=== PATIENT | male | born 1945 | race Caucasian/White ===

== ENCOUNTER 2019-02-02 08:12 | Day surgery (SDC) | payer OTHER ==
--- NOTE | 2019-02-01 15:11 | RAD REPORT ---
EXAM DESCRIPTION: Lisandro Bull (2 Views)02/01/2019 3:02 pm CLINICAL HISTORY: Hypertension preop for vascular angiography COMPARISON: None FINDINGS: The lungs appear clear of acute infiltrate. The heart is mildly enlarged IMPRESSION: No acute abnormalities displayed
[2019-02-01 16:15] LABS: Absolute Lymphocytes (CBC) 1.6 K/uL (0.7-4.9); Basophils % 0.5 % (0-1.3); Hematocrit 45.8 % (39.6-49.0); Lymphocytes % 24.4 % (15.3-44.8); MPV 9.9 fL (7.6-11.3); RBC Red Blood Cell Count 4.87 M/uL (4.33-5.43)
[2019-02-01 16:31] LABS: Protime INR 1.18
[2019-02-01 16:38] LABS: Potassium 3.7 mmol/L (3.5-5.1)
[2019-02-02] MEDS ORDERED: NA CHLORIDE 0.9% 500 ML ONE (08:37)
[2019-02-02] MEDS ORDERED: LIDOCAINE 1% MPF 30 ML VIAL ONE (09:11)
[2019-02-02] MEDS ORDERED: HEPA 1000U/500MLS 1,000 UNIT/500 ML BAG IV ONE (09:11)
[2019-02-02] MEDS ORDERED: FENTANYL CITR 100 MCG/2 ML ONE (09:26)
[2019-02-02] MEDS ORDERED: MIDAZOLAM HCL 2 MG/2 ML INJ ONE ×2 (09:26→09:39)
--- NOTE | 2019-02-02 20:08 | OP ---
Surgeon: Robert Ferro MD Assembler Molded Frames: Hyacinth Lynch. Reason For Admission: Outpatient bilateral selective carotid angiogram. Indication: Cerebrovascular disease. Procedure In Detail: Mr. Garner is 73, has had a history of AFib, CAD in the past, hypertension, d yslipidemia, was found on a routine carotid Doppler examination because of a bruit to have bilateral carotid stenosis, admitted as an outpatient through the director of labor relations, was given Versed for IV sedation. A 6-Mauritanian sheath introduced in the right common femoral artery. Patient has been on Coumadin and th is has been held for about 5 days. Angio-Seal was used to close the case. A JR4 catheter Diana tn s used for selective angiography of the right carotid artery and the left carotid artery. He was fou nd to have an 80% right carotid artery stenosis. He was found to have a 50% to 60% left internal car otid artery stenosis right at the ostium. There were no complications. Blood loss was 5 cc. Final Diagnosis: Cerebrovascular disease, severe. Plan: At least for now is a right carotid endarterectomy. Anesthesia: Total conscious sedation was 30 minutes. HIRO/AHMET Voice ID: [id number] Report ID: [id number]
== END 2019-02-02 12:11 | disposition home or self-care (01) ==
LOC: CCL 08:12
DX: I65.23 Occlusion and stenosis of bilateral carotid arteries (principal); I10 Essential (primary) hypertension; I48.91 Unspecified atrial fibrillation; E78.5 Hyperlipidemia, unspecified; E78.6 Lipoprotein deficiency; G47.30 Sleep apnea, unspecified; Z88.0 Allergy status to penicillin; Z88.8 Allergy status to other drugs, medicaments and biological substances; Z79.01 Long term (current) use of anticoagulants; Z82.49 Family history of ischemic heart disease and other diseases of the circulatory system
CPT/HCPCS: 85025; 80048; 36415; 85610; 85730; 71046; 36222; C1893; C1760; J2250; J3010

== ENCOUNTER 2020-02-24 06:38 | Day surgery (SDC) | payer OTHER ==
--- NOTE | 2020-02-22 14:20 | RAD REPORT ---
EXAM DESCRIPTION: Lisandro Figueroa And Camron (2 Views)02/22/2020 2:12 pm CLINICAL HISTORY: Preop for coronary catheterization COMPARISON: 2019 FINDINGS: The lungs appear clear of acute infiltrate. The heart is mildly enlarged IMPRESSION: No acute abnormalities displayed
[2020-02-22 14:46] LABS: Absolute Lymphocytes (CBC) 1.4 K/uL (0.7-4.9); Basophils % 0.7 % (0-1.3); Hematocrit 45.3 % (39.6-49.0); Lymphocytes % 18.9 % (15.3-44.8); MPV 9.8 fL (7.6-11.3); RBC Red Blood Cell Count 4.87 M/uL (4.33-5.43)
[2020-02-22 14:48] LABS: Protime INR 2.02
[2020-02-22 14:53] LABS: Potassium 4.8 mmol/L (3.5-5.1)
--- OUTSIDE RECORDS SUMMARY | 2020-02-24 06:40 | XMS REPORT | Clinical Summary ---
:1945 Author Organization [facility] Address [address] [place] [address] Care Team Providers Name Role Phone Rashad Ledesma Primary Care Provider Unavailable Aaron Bermudez Unavailable Allergies Active Allergy Reactions Severity Noted Date Comments Penicillins 02/01/2019 Other reaction( s): Itching/Hives/R imani Rpugbst-Otw-Rnh Reductase 02/08/2019 "P ass out". Tried all Inhibitors statins Medications Medication Sig Dispensed Refills Start Date End Date Status amLODIPine (NORVASC) Take 10 mg by 3 12/17/2018 Active 10 MG tablet mouth daily. valsartan-hydrochlorot Take 1 tablet by 3 12/18/2018 Active hiazide (DIOVAN-HCT) mouth daily. 320-12.5 mg per tablet warfarin (COUMADIN) 6 Take 7 mg by mouth 0 9 Active MG tabletIndications: daily Total of 7 takes a 1mg and 6 mg mg daily. pills making a total of 7mg daily. omega-3 fatty Take 2 g by mouth 0 Active acids-fish oil daily. 340-1,000 mg Cap per capsule CHOLESTEROL ORAL Take 6 capsules by 0 Active mouth daily "Cholesterol off complete" . Missing or Take 25 mg by 0 Activ e Non-Formulary mouth daily Medication allergy relief . multivit-mins/iron/fol Take 1 tablet by 0 Active ic/lycop (CENTRUM MEN mouth daily. ORAL) Active Problems Problem Noted Date Carotid artery stenosis 02/24/2019 Carotid stenosis 02/24/2019 S/P right carotid endarterectomy (Mariela 02/24) 2018 Hypertensive urgency 02/24/2019 Respiratory insufficiency 02/24/2019 Carotid artery occlusion Hypertension Hyperlipidemia Atrial fibrillation Encounters Date Type Specialty Care Team Description 03/11/2019 Office Visit Cardiology William Sierra Postoperati ve state MD Yonathan (Primary Dx) 02/25/2019 Travel 02/24/2019 Surgery William Sierra ENDARTERECT SIERRACAITY MD 02/24/2019 Anesthesia Event KristyMau rose, AA 02/24/2019 - Hospital Encounter Cardiology William Sierra S/P r ight carotid 02/25/2019 MD Yonathan endarterectomy (Mariela Teran, Capri 02/24) (Primar y Dx) MD Richar after 02/23/2019 Family History Medical History Relation Name Comments Cerebral aneurysm Mother Relation Name Status Comments Father Mother Social History Tobacco Use Types Packs/Day Years Used Date Never Smoker Smokeless Tobacco: Never Used Alcohol Use Drinks/Week oz/Week Comments No Alcohol Habits Answer Date Recorded How often do you have a drink containing alcohol? Never 02/08/2019 How many drinks containing alcohol do you have on a typical Not asked day when you are drinking? How often do you have six or more drinks on one occasion? No t asked Sex Assigned at Date Recorded Not on file Job Start Date Occupation Industry Not on file Not on file Not on file Travel History Travel Start Travel End No recent travel history available. Last Filed Vital Signs Vital Sign Reading Time Taken Blood Pressure 142/84 03/11/2019 9:52 AM CDT Pulse 92 03/11/2019 9:52 AM CDT Temperature 36.8 C (98.3 F) 03/11/2019 9:52 AM CDT Respiratory Rate 18 03/11/2019 9:52 AM CDT Oxygen Saturation 98% 03/11/2019 9:52 AM CDT Inhaled Oxygen Concentration - - Weight 99.8 kg (220 lb) 03/11/2019 9:52 AM CDT Height 177.8 cm (5' 10") 03/11/2019 9:52 AM CDT Body Mass Index 31.57 03/11/2019 9:52 AM CDT Plan of Treatment Health Maintenance Due Date Last Done Comments COLON CANCER SCREENING COLONOSCOPY 1945 PNEUMOCOCCAL 65+ LOW/MEDIUM RISK (1 of 2 - PCV13) 2011 MEDICARE ANNUAL WELLNESS (YEAR 2 or FIRST YEAR if no 06/07/2012 IPPE) INFLUENZA VACCINE (#1) 2020 Implants Implanted Type Area Scheduling Coordinator Device Shelf Model / Identifier Expiration Serial / Lot Date Grft Hemshld Dbl Aleksandr 0.3x3.0in [id number] - [id number] NTS Right: GETINGE 03/06/2023 [id number] / Implanted: Qty: 1 on 02/24/2019 by William Sierra MD Carotid IND:MAQUET:CV [id number] / Artery [id number] Procedures Procedure Name Priority Date/Time Associated Comments Diagnosis RHYTHM STRIP - SCAN 02/26/2019 1:00 PM CDT RHYTHM STRIP - SCAN 02/26/2019 10:21 AM CDT TRANSFUSION SERVICE 02/25/2019 6:00 REPORT - SCAN PM CDT PROTHROMBIN TIME/INR STAT 02/24/2019 9:44 Res ults for this AM CDT procedure are i n the results section. PHOSPHORUS STAT 02/24/2019 9:44 Results for this AM CDT procedure are i n the results section. MAGNESIUM STAT 02/24/2019 9:44 Results for this AM CDT procedure are i n the results section. LACTIC ACID, STAT 02/24/2019 9:44 Results for this ARTERIAL AM CDT procedure are i n the results section. HEPATIC FUNCTION STAT 02/24/2019 9:44 Results for this PANEL AM CDT procedure are i n the results section. CBC (HEMOGRAM ONLY) STAT 02/24/2019 9:44 Resu lts for this AM CDT procedure are i n the results section. CALCIUM, IONIZED STAT 02/24/2019 9:44 Results for this AM CDT procedure are i n the results section. BASIC METABOLIC STAT 02/24/2019 9:44 Results for this PANEL (7) AM CDT procedure are i n the results section. TISSUE EXAM AP Routine 02/24/2019 8:24 Results for this AM CDT procedure are i n the results section. ENDARTERECTOMY,CAROT 02/24/2019 7:30 Carotid stenosis , ID AM CDT asymptomatic, right Special Needs (ICU BED) ABORH, MANUAL STAT 02/24/2019 7:00 AM CDT Res ults for this procedure are in the results section. PROTHROMBIN TIME/INR Routine 02/24/2019 7:00 AM CDT POCT-GLUCOSE METER Routine 02/24/2019 5:50 AM CDT after 02/23/2019 Results RHYTHM STRIP - SCAN (02/26/2019 1:00 PM CDT)Only the most recent of2 results within the time period is included. Narrative Performed At This result has an attachment that is no t available. TRANSFUSION SERVICE REPORT - SCAN (02/25/2019 6:00 PM CDT) Narrative Performed At This result has an attachment that is no t available. Calcium, Ionized (02/24/2019 9:44 AM CDT) Calcium, Ion 1.15 1.12 - 1.27 mmol/L [facility] pH, Blood 7.37 [facility] Specimen Blood Performing Organization Address City/[facility]/Zipcode Phone Number [address] [address] [place] Lactic Acid, Arterial (02/24/2019 9:44 AM CDT) Lactate, Art 0.8 0.5 - 2.2 mmol/L [facility] Specimen Blood, Arterial Performing Organization Address [facility] Phone Number [address] [address] C[place] Prothromin time/INR (02/24/2019 9:44 AM CDT)Only the most recent of2 results within the time period is included. Protime 16.2 (H) 11.9 - 14.2 seconds [facility] INR 1.4 <=5.9 [facility] Specimen Blood Narrative Performed At Effective 12/02/2018: PT Reference Range [facility] Change New: 11.9-14.2Previous: 11.7-14.7 RECOMMENDED COUMADIN/WARFARIN INR THERAPY RANGES STANDARD DOSE: 2.0-3.0Includes: PROPHYLAXIS for venous thrombosis, systemic embolization; TREATMENT for venous thrombosis and/or pulmonary embolus. HIGH RISK: Target INR is 2.5-3.5 for patients wiht mechanical heart valves. Performing Organization Address City/[facility]/Zipcode Phone Number [address] [address] [place] CBC (Hemogram only) (02/24/2019 9:44 AM CDT) WBC 11.4 (H) 3.5 - 10.5 K/L [facility] RBC 4.58 (L) 4.63 - 6.08 M/L [facility] Hemoglobin 14.6 13.7 - 17.5 GM/DL [facility] Hematocrit 42.8 40.1 - 51.0 % [facility] MCV 93.4 (H) 79.0 - 92.2 fL [facility] MCH 31.9 25.7 - 32.2 pg [facility] MCHC 34.1 32.3 - 36.5 GM/DL [facility] RDW 13.1 11.6 - 14.4 % [facility] Platelets 245 150 - 450 K/CU MM [facility] MPV 10.4 9.4 - 12.4 fL [facility] nRBC 0 0 - 0 /100 WBC [facility] Specimen Blood Performing Organization Address City/[facility]/Zipcode Phone Number [address] [address] [place] Phosphorus (02/24/2019 9:44 AM CDT) Phosphorus 2.9 2.3 - 4.7 mg/dL [facility] Specimen Blood Performing Organization Address City/State/Zipcode Phone Number [address] [address] C[place] Magnesium (02/24/2019 9:44 AM CDT) Magnesium 1.9 1.6 - 2.6 mg/dL [facility] Specimen Blood Performing Organization Address City/[facility]/Zipcode Phone Number [facility] [address] [place] [address] [place] Hepatic function panel (02/24/2019 9:44 AM CDT) Protein, Total 7.0 6.0 - 8.3 gm/dL [facility] ALTH [facility] Albumin 3.7 3.5 - 5.0 g/dL [facility] Total Bilirubin 1.0 0.2 - 1.2 mg/dL [facility] Bilirubin, Direct 0.4 0.1 - 0.5 mg/dL [facility] Alkaline Phosphatase 64 40 - 150 U/L [facility] AST 22 5 - 34 U/L [facility] HE ALTH [facility] ALT 16 6 - 55 U/L [facility] Specimen Blood Performing Organization Address City/State/Zipcode Phone Number [facility] [address] [place] [address] [place] Basic Metabolic Panel (02/24/2019 9:44 AM CDT) Sodium 136 136 - 145 meq/L [facility] Potassium 4.1 3.5 - 5.1 meq/L [facility] Chloride 107 98 - 107 meq/L [facility] CO2 22 22 - 29 meq/L [facility] AL[facility] BUN 18 7 - 21 mg/dL [facility] AL[facility] Creatinine 1.00 0.57 - 1.25 mg/dL [facility] Glucose 131 (H) 70 - 105 mg/dL [facility] Calcium 8.3 (L) 8.4 - 10.2 mg/dL [facility] H EALTH [facility] EGFR 73Comment: ESTIMATED GFR IS mL/min/1.73 sq m [facility] NOT ACCURATE CREATININE [facility] CLEARANCE IN PREDICTING GLOMERULAR FILTRATION RATE. ESTIMATED GFR IS NOT APPLICABLE FOR DIALYSIS PATIENTS. Specimen Blood Performing Organization Address City/[facility]/Zipcode Phone Number [address] [address] [place] Tissue Exam (02/24/2019 8:24 AM CDT) Case Report Surgical Pathology Report Case: [id number] [facility] Authorizing Provider:William Dennis, Collected: 02/24/2019 0824 [facility] Received:02/24/2019 1015 [employer]IOPERATIVE SERVICES Pathologist: Abimael Perez MD Specimen:Carotid, Ri ght, RIGHT CAROTID ARTERY PLAQUE DIAGNOSIS ARTERY, RIGHT CAROTID, ENDARTERECTOMY: [facility] CALCIFIC ATHEROSCLEROTIC PLAQUE [facility] Signing Pathologist Direct Phone Line: [phone] CPT Code(s) 78915; [address] [facility] ER SPECIMEN SOURCE Carotid artery plaque, right, [facility] description, right carotid [facility] artery plaque GROSS DESCRIPTION The specimen is received in one part labeled with the patient's name and MRN number corresponding to requisition slip with the same information. [facility] Received in formalin labeled "carotid right" is one piece of blood vessel with a pinpoint lumen measuring 2.7 x 0.8 x 0.5 cm. The lumen is smooth except for proximal dark red irregular surface. Represen tative sections are submitted in cassette A1. M A/pl MICROSCOPIC DESCRIPTION Performed [facility] Specimen Tissue Performing Organization Address City/[facility]/Zipcode Phone Number [address] [address] [place] ABORH, manual (02/24/2019 7:00 AM CDT) ABO Grouping O [facility] Rh Factor POS [facility] Specimen Blood Performing Organization Address City/[facility]/Zipcode Phone Number [address] [place] [phone] POC-Glucose meter (02/24/2019 5:50 AM CDT) POC-Glucose Meter 96Comment: TESTED AT 70 - 110 mg/dL [facility] [address] [facility] [id number] Specimen Blood Performing Organization Address City/State/Zipcode Phone Number [address] [address] CENTER after 02/23/2019 Insurance Payer Benefit Plan / Group Subscriber ID Type Phone A ddress MEDICARE MEDICARE A B xxxxxxxxxxx Medicare AETNA - MGD CARE AETNA INDEMNITY NON CONTR xxxxxxxxx Comm Advance Directives For more information, please contact:[address] [phone] Code Status Date Activated Date Inactivated Comments Full Code 02/24/2019 5:41 AM 02/25/2019 1:05 PM This code status was determined by: Patient
--- OUTSIDE RECORDS SUMMARY | 2020-02-24 06:41 | XMS REPORT | Continuity of Care Document ---
:1945 Author Organization [facility] t Address [address] [place] [address] Care Team Providers Name Role Phone Rashad Ledesma Primary Care Physician Unavailable Heather Sierra MD Attending Clinician HEATHER SIERRA Attending Clinician Unavailable Richar Teran MD Attending Clinician Cesia Sewell Attending Clinician Unavailable HEATHER SIERRA Admitting Clinician Unavailable Payers Payer Name Policy Policy Number Effective Expiration Source Type Date Date MEDICAREMEDICARE A xxxxxxxxxxx [facility] B[facility]xxx[facility] AETNA - MGD CAREAETNA xxxxxxxxx [facility]MNITY NON [facility] CONTR[facility]xComm [facility] Problems Condition Condition Condition Status Onset Resolution Last Treating Co mments Source Name Details Category Date Date Treatment Clinician Date Carotid Carotid Disease Active [facility] stenosis stenosis 02-24 [facility] - 00:[facility]: Medical 00 Center S/P right S/P right Disease Active [facility] carotid carotid 02-24 [facility] - endarterec endarterec 00:00: Me dical jurgen jurgen [address] [place] (Mariela López 02/24) 02/24) Hypertensi Hypertensi Disease Active [facility] ve urgency ve urgency 02-24 Shayy kes - 00:00: Medical 00 [place] Respirator Respirator Disease Active [facility] y y 02-24 [facility] - insufficie insufficie 00:00: Me dical ncy ncy 00 Center Carotid Carotid Disease Active [facility] artery artery [facility] - occlusion occlusion [facility] Hypertensi Hypertensi Disease Active [facility] on on [facility] Hyperlipid Hyperlipid Disease Active [facility] emia emia [facility] Atrial Atrial Disease Active [facility] St fibrillati fibrillati [facility] - on on [facility] Center Allergies, Adverse Reactions, Alerts Allergy Allergy Status Severity Reaction(s) Onset Inactive Treating Comm ents Source Name Type Date Date Clinician Statins- Propensi Active "Pass [facility] Hmg-Coa ty to 02-08 out". [facility] - [place] adverse 00:00: Tried all [facility] e reaction 00 statins [place] Inhibito s rs Penicill Propensi Active Other [facility] ins ty to 02-01 reaction( [facility] - adverse 00:00: s): Medical reaction 00 Itching/H Cente r s char/Rash Family History Family Member Diagnosis Comments Start Date Stop Date Source Natural mother Cerebral aneurysm [facility] Social History Social Habit Start Date Stop Date Quantity Comments Source History SDOH Alcohol [facility] Std Drinks [facility] History SDOH Alcohol [facility] Binge [facility] Sex Assigned At [facility] History SDOH Alcohol 2019-02-08 2019-02-08 1 [facility] - Frequency 00:00:00 00:00:00 [facility] Center Smoking Status Start Date Stop Date Source Never smoker [facility] edical [place] Medications Ordered Filled Start Stop Current Ordering Indication Dosage Frequency Signature Comments Components Source Medication Medication Date Date Medication? Clinician (SIG) Name Name multivit-mi Yes 1{tbl} QD Take [address] ns/iron/fol 8-05 tablet by Dulce es - ic/lycop 10:31: mouth Medical (CENTRUM 46 daily. Center MEN ORAL) omega-3 2018- Yes 2g QD Take [address] fatty 8-05 by mouth [facility] - acids-fish 10:31: daily. Medic al oil 19 Center 340-1,000 mg Cap per capsule CHOLESTEROL 2019- Yes 6{capsu QD Take [address] ORAL 8-05 le} capsules [facility] - 10:31: by mouth Medical 19 daily Center "Cholester ol off complete" . Missing or Yes 25mg QD Take [address] Non-Formula 8-05 by mouth Luke s - ry 10:31: daily Medical Medication 19 allergy Center relief . warfarin Yes 7mg QD Take [address] (COUMADIN) 7-08 by mouth [facility] - 6 MG tablet 00:00: daily Medic al 00 Total of 7 Center mg daily. valsartan-h Yes 1{tbl} QD Take [address] ydrochlorot 6-14 tablet by Dulce es - hiazide 00:00: mouth Medical (DIOVAN-HCT 00 daily. Center ) 320-12.5 mg per tablet amLODIPine Yes 10mg QD Take [address] (NORVASC) 6-13 by mouth [facility] - 10 MG 00:00: daily. Medical tablet 00 [place] Vital Signs Vital Name Observation Time Observation Value Comments Source Systolic blood 2019-03-11 09:52:00 142 mm[Hg] [facility] Diastolic blood 2019-03-11 09:52:00 84 mm[Hg] [facility] S [facility] Heart rate 2019-03-11 09:52:00 92 /min [facility] Body temperature 2019-03-11 09:52:00 36.83 Sisi [facility] Respiratory rate 2019-03-11 09:52:00 18 /min [facility] Body height 2019-03-11 09:52:00 177.8 cm [facility] Body weight Measured 2019-03-11 09:52:00 99.791 kg [facility] BMI 2019-03-11 09:52:00 31.57 kg/m2 [facility] Oxygen saturation in 2019-03-11 09:52:00 98 /min [facility] Arterial blood by Medical Ce nter Pulse oximetry Procedures Procedure Date / Time Performed Performing Clinician Romeo gee RHYTHM STRIP - SCAN 2019-02-26 13:00:08 Provider, Default [facility] RHYTHM STRIP - SCAN 2019-02-26 10:21:43 Provider, Default [facility] TRANSFUSION SERVICE 2019-02-25 18:00:16 Provider, Default [facility] - REPORT - SCAN [facility] BASIC METABOLIC PANEL 2019-02-24 09:44:[address] [facility] () [facility] CALCIUM, IONIZED 2019-02-24 09:44:00 [facility]ala amy [facility] CBC (HEMOGRAM ONLY) 2019-02-24 09:44:00 Zavala [facility] HEPATIC FUNCTION PANEL 2019-02-24 09:44:00 Zavala [facility] LACTIC ACID, ARTERIAL 2019-02-24 09:44:00 ZavalaRo [facility] MAGNESIUM 2019-02-24 09:44:00 Zavala amy [facility] PHOSPHORUS 2019-02-24 09:44:00 Zavala [facility] PROTHROMBIN TIME/INR 2019-02-24 09:44:00 Tay Umanzor [facility] TISSUE EXAM 2019-02-24 08:24:00 William Sierra [facility] ENDARTERECTOMY,CAROTID 2019-02-24 07:30:[address] [facility] PROTHROMBIN TIME/INR 2019-02-24 07:00:00 Channing Alatorre [facility] ABORH, MANUAL 2019-02-24 07:00:00 Denisha Abreu [facility] POCT-GLUCOSE METER 2019-02-24 05:50:[address] [facility] Plan of Care Planned Activity Planned Date Details Comments Source Future Scheduled 2020-03-07 INFLUENZA VACCINE (#1) [facility] - Test 00:00:00 [code = INFLUENZA Medical Ce nter VACCINE (#1)] Future Scheduled 2012-06-07 MEDICARE ANNUAL [facility] - Test 00:00:00 WELLNESS (YEAR 2 or Medical Center FIRST YEAR if no IPPE) [code = MEDICARE ANNUAL WELLNESS (YEAR 2 or FIRST YEAR if no IPPE)] Future Scheduled 2011 PNEUMOCOCCAL [address] - Test 00:00:00 LOW/MEDIUM RISK (1 of Medica [facility] 2 - PCV13) [code = PNEUMOCOCCAL 65+ LOW/MEDIUM RISK (1 of 2 - PCV13)] Future Scheduled [address] [facility]ce [facility] - Test 00:00:00 malignant neoplasm of Medica l Center colon (procedure) [code = 312936062] Results Test Description Test Time Test Comments Results Result Comments Source Tissue Exam 2019-03-03 17:48:00 Test Item Value Reference Range Interpretation Comme nts Case Report (test code = 104) Surgical Pathology Report Case: [id number] Authorizing Provider: William Sierra, Collected: 02/24/2019 0824 Ordering Location: [facility] Received: 02/24/2019 1015 PERIOPERATIVE SERVICES Pathologist: Abimael Perez MD Specimen: Carotid, Right, RIGHT CAROTID ARTERY PLAQUE DIAGNOSIS (test code = 3220) i9blwYJrEIQjo3uaMMZxlNBeVlQeQdZaPjAuXd pc pCCdMAzkqgFfNEyrf7LbH8TuNhApCJotwaEuHNIj ZcrazxbkEUCfPKN1ibDkVWMyPPsbJBZuGMvtKv5q rWNtuXrwVwBtEZRpz8ftrkWJrsyuuXh7b1yzENOz HaO4aRFtGPaaP4oqgtEtuJTuEPFiGXg0vZ37NDVc eR4luODkAMjvjyOgMVivyaZuocVtLls6SPTsK6hj FFCfGSGhB8IiEM0nWNMaJwd8EJB5WED5rGpgg4A0 fTWzgXRkcVbhPfZuPqUmOTUAu0QvXGi3sDgzR1Hx KSJhUvV0kUEoCTNaZJfgGPNhFKWmqhH9bC54INzr inO4aDXgs4Mwm87bb253hN8lnICeKHA5FTMmIANq xGCdBNDgJJJ4QQIssAHiK9v9VdBcrRPjC5B9OkXf fBNlY0G0FgBqgPKiW7Z6TdYztWWnCZLtqJPgKf9f nRDtdSAjiv3vxl45IRT0f2BxqXqqEXN9DSV6GjWg Yn5thYZaJBYaBI2jUtMxpAGkEFFqcb80bVsdROku ldOgmP8qJnTdSJRvxAJhBFHgPK2gzZYpXMVrqG8g sntkSVZqKvFpwwrbDRZacHlzxyOkWz0zsHdjPUJ0 MJetD4yggZ0jIiH7VCgzZ4kniO7oEQa0YEudkJJ6 KUTvyR7dWF9cfzsxs4ohPdAkRC6dszmgn0txNoHx OT2jcwp6c8hhUyTgRD1wyuvbs5thGrDeBBwwZSIl rqfnEBVgn4GmnmqlGDLkj0ZsY4OraLqzL52fxBao J39hDSZtkYmivE5ddWzbiA5rHzQfEvGdRJgsnZhg bGFpblxmMFxmczIwXHBsYWluXGYxXGZzMjAgQVJU RVJZLCBSSUdIVCBDQVJPVElELCBFTkRBUlRFUkVD HH4RAJxcdPLaPVVCJXMMTthRLXOFKVNXA2AFNCWP L6LPCwZHJPNTHRGyaTHgrTxqrtQeYDfpo4QvREfu QYYyPX0vhLaiIHFuEB1wXMFjO4gyoX6aaty8EgIa GZDlQcN0PYYvjtN0Yzi8HKYpPTvdp4stt1GwVKEe VLy7qGxsHaXhFUNff8nlwyFhPkFeNSAnIMFzUTDh hOBpV181z0wvx4vhbrCjbEC9EHCaHMJ2GPbvnqJy stQ3UVuktZJwOnN9YKoihuHoHBulroLjrqFkBpa9 PGAzM930ICH8tZtsn2kfDJW4PSRmQNKiZuRlAd4k kPEhT183YHKfSECGVBZpeDc8FDXdunJbxjYjkJHP m233Z079o2gmKWZjlyYpxWiCiktii1tqY245VYEz zUSshgKzFpYhORJruHXzxSP6BKKaXV8bcodaIGmq AJjwSOKvxiE7GXNzqVAeI0RvMOUlKA3xtdkpUUF7 CJbbCZFjLYQ1FaQyLXNco6Dfonw2SrOnop3ujb60 UOG0s1ZvlCetUTL5OPA0VuTuSo1dfSZqEKFkHI3v CuKkoJXaQCGzaz95hQlbNJglBEM4RSAlgnWht9Yo i4myOoKobuYeH4qpV1FcQCDjSBGoQPGbByKuvoIr y8Rct3PehTZebUw5g5qoWPNxXMPrpDdba5bqGXV7 WSCkeENcH7xbeN8hAGKzSH6dfkzdr1vrMDvsJUzi KGEoiOY3ozE5EADfvFTeN6PtsO5gTREoWGnqFEKj ytc7PwTbYg4kwXLzkBmoTQgrOiseJCtoCNJhtwMf bnRccGduZGVjXHBsYWluXHBsYWluXGYwXGZzMjRc cWxcbGFuZzEwMzNcaGljaFxmMVxkYmNoXGYxXGxv L1crGuGsFyLjLdd4VZPzdNFiDZCjBpf3TEYojKEw LQMLnZydyG0pGRRhfDwhzK1krCW3BFJqjiWqxRYP gH0zSHHIgJ7fWpU3VoCdFqM2BYKjEWicyZSriW6= CPT Code(s) (test code = 3357) s4wuoRQtVDFzzZEaHsEeRSFkZJVol7abGCCt bGFu IaGyUsNaHoZaQxwmtNTrMQGtNnOer9yxy512iMNz o7bbDEDfJbY1oJFzTCTleJOoM869t1cjx3vxviIp dCP9YJIcEQV4RBdlwmVkigY3BPlqhBNhJpW9PRfa ogAtQSrmhvZcitPxAhl6XZVpW977WOV5mGtzi8tf YQE5TIHhKBTjLoWvXi0xtOKnF734GGKoVFROCNNm wZw9YRDsmzZpwgRdtTBEp514U810f4nhORQsebLw iOxBspyht4yzL242KODgqVVbeyCjHqCxKYBsmZLt uPT7JCRaYU7mprzePpPwOT9yanecWaJhRC1chjc8 CsVxLB3vnhbzAeByCMakUHLwpqhtXLBwf2Oqzcts HN2jC3Jfr6C5yE7cuAArFTXtaXJkXmZkOQMnhh3y wZSmTMumb4YkOJW9vsU8wRKyxPAlVHOzTE94Zhrb d5DcRtppPXX9NPAtqzIxt9Bfv8siHhSotzNcV4ah C7QwAFLqMVZwQMWxCaOiasQhp2Ioq1HszOVxnVj8 s7ufLKDhNMQnjPnjx7udTOS7CEXtH9Z7iJAxx2eu KBjzPPEuiFE3rhxwNRmgNCExmqN5ovamUMuxCUCv eSV9ukqfKIjpIIXiYeP9luhgKOczWDSkRQA5SHmf j173DAP1EGhyHkgzZMsuYNXgbmLyitKtxLaqZMFl MEOeHLgzWAXdDQitYNTjWXGpMlFnpGoadCglzR1g RlNhLaUmFPbcCQ1qYCBfX6uigGXnQLBwJWOzH1xc YjSilJ2gbFupGPmdkrVyPSo8FmD2CuD8TRQiZGzd YXJ9 SPECIMEN SOURCE (test code = 3377) c7rmjNKbHFShlWNlPyOaVDMoQWKhj4ig ZGVmbGFu ErQzWgPvAfApYmfcwETvZKJgGuXyg1xzn545mNEw s8dqAKPwUnM7zLNsYUXrqSAgO099p1jsi5hsqiRe tSM4ACOlDWL1WDttkaAtfrN2YEcjwPMhMzS9DKgd dgMxICdbkpRpuqLzMen7YZTkQ264ESI7xJceu3wa HZO7PSSzBQEyAuYwCz6rzDHsQ569JELyXSSXYCFp eRm5KCYskpEyzlWvxKQYx376Q857s8ujLMIpgdUx kHiIwbjmp6raU094AZGzfIEjezIzNmUoZNIymZZv bGY3ZCFfHV5xnvpuXgOvHK0jffzkTqSpYB5kkcw0 EcDrLC4ydileTmZhWTxyLNNfsftvWWMdp0Zilexj QT2tS3Mel2J8uP7isMDdKBFkvISqGuDbQFJmii9v kLAyDParb9YlNUZ8bvJ8aDIlaQKzZIJkBB36Kkds b5ZqVtznOTC6JPNmucOnk8Aou6tfIfRtrjHmC0pt L6XhUEWlORJkCZZvXlBnnbDhe6Kiz1EfaXGnqPj8 a7zhROSlCXInbWvgc1hgOES3ADXpT9I3lSVuk8ew LVvgJRUlmSC1fayyCDvtBSMtppP6btflILivGFFo aWS1mnfeNXqbDIUgKhZ8fmkjQUqvOIKcPXN2KKlq l998AWW0SHjiFkcfPMqhZHCyqnJtedBujIcuOSOe NCFwKLzcQCDyNSijSMVgCLVyWcDflJeaxPdkuV4w IqFuAgPeEJqcQB9tFVLeI4lloHYsXWMuTMLtI1iq OxVikP6tsIfuCAwbokDjJINnqd97dNMjNIZ2TBX8 FDLmTSN0JWrqggiisAZiYOPls5CrtDW6lC1oDVAw aWdodCBjYXJvdGlkIGFydGVyeSBwbGFxdWVccGFy fQ== GROSS DESCRIPTION (test code = 3366) z2hdwCAxTACdwNIeNnIuKCQwEYWhc3 lcZGVmbGFu UqCoDrXkCeZmMktssUDfWKIaCxQsj7nkq344tFUu r5ciRBTnZqZ8hHPyPVHokWRkI891HYDxZLdmh4qx r5ZiRSDzzNWwa6J2IEPJtbjxqOy7zAhwI57ku4U0 TmplP4tqEMGqGVHjH0IxQU1yQEZjDza4NJZ4KHJ0 TCUlDZOjL0BoOW7iEUPfrBOhQDa6t2ntjCotAXIm UKZ2c0jyQXrwugKxSG4sdo5vxEk3g5duzePwVZNa UOYhgAKMCSDbG5DnsNysYm0kmBh1qArhKeroOOD3 Ikt4XJ3wrw97rys3qFgyXOTdryvcFpG1MZabWOLt schuJFp1WDlgIZVvkFmrXYduGZTulnsiNMemBCLe lCfuCHqgWENxKhuxXTbeNSKbOGP6WYdlz690YIW1 OXyfh1vdu1wneRWwVcy5ZDCnPqTyVizxPLrwj0Zl p5uiSEMwkh2kFPX6iIFrhZjes1Y5bHMoZMAtbTMw xmPbTWEdMuJ9QMpsOH8qky54KDEyPBE8ac8fsSQw bHdxbyWfyEDdSGbvD7CePCQnu894LGEiT0IdTKPy y2J7wvUbTlQwQWXnvDZ6tdW2GRFpURn8dMFhwnK5 ciAiwVMlG8dmaJ37OaFuyPDoH2GbhE03TcMdeKFl E6IkeA88GwVxoAGnO4KliL65FbGhgNVvORGswOOc Fj5vkBRzwHEym2MtxBNjUXibS32yd136TBWgedHd L8matNXgucqyuFVzjkqsHRzrwtF0ZHGjJWKkQDrs XGYxXGZzMjBcbGFuZzEwMzNcaGljaFxmMVxkYmNo UXZpAHhiT7qxHmOpNhZcYVUNvKPwt6XuZ9mkBY0a dRQbyjPcMVa9VRRkvA1nr04mAMMeuiMrgXRjHHzv BJZ2kNSuOMGmJUStIGEuPD00I9SebxZwXUSwkjUv MOEJLI17yQQvcbCuv8PlRQJyh55woT5eNCSgRXZp nTQhn3v1lZ0dMAGutVIni3u7kSA8hMByl0FmZJRh xeTwkd2orMkupc9oICljNECktXCzGDYrD3AtutQu YHfdTJNjio0lbZgeHNetOwZaLQWyOjDkmh38uEWg pegoxMDyIBwwNT0hWHSejRYmLBLmQpMeeB3fYQD4 KMJhGQorq7t9zVXiEFDcqeKbgF63MVw3rYYrQM2u XOG5wcgnUkPrTrhjaENkZxrdhEPfRbDnD74pUNEp YRCjyG0bfnEkamJvyU3nxCesOJnlZVY6FBSvhqRq vr07rM4sxPXbVSCeUFNrHMEcatGeW2FsMCUzw1Hj XkBvYX2fCpDnjeXuLR68PQVzhmDrp1BzwVhejiIu XWCtPJG9Tw2xzZKuLKXynsUwYKZtIGG1BYJPEB9x SC3DD0TwDLFcwz6= MICROSCOPIC DESCRIPTION (test code = c8hzzMTtEGHhlUNhTeUjRNIzNLKth9 [facility] PrBaToEbRoUgDumbbIGwRFIhCfDrz5rkq668mSOn b5byBIXpHxI4oBYtUVKshWFpF783i2ijw7omhiOr kFM1WKHdQAY2NPehveLixmD1NUpsvSIhDgQ7SZkj pcNfBWofnxOcpxMkWtc7EZMrR532ESH2qOrzs9sz PHI0IRDcZQFqGbBzWf2ltNMgO202WHMoORHWHFGa dYs8NLVfymSvoyWccHQMp717M251d5fcHWSgjvBy iCdZtambq7myB195UQDyhPJxurUrUvJhVWMheYCf xBM5LTToGE9hlodfWiFpVT9nlukfFdGsVN4swwh0 BhXcSP6qadffUkLfZMruCNHcrlpvRMGrt7Pfvuwu WU4bD8Xjg6P6uX5uhBMaNNHyxAImObTgQTGqun5t oDOzHMhin4ZvAAV9pmM0jWUipJEtNWFkEE24Shsh m1UgBmwrLZX3GWAanbOox9Xql5elLuHuhjFyY7dz O5RoMDAvJUYmSWEoVlDsctBjy1Lof2AwaTAmxTx4 e0cnSDQrWKCxiQswc1tcJXR1MKMmI7E8sKHnt6xs UTapFAQyxKW0ojxnKGtfPLVuodI1zrwnEGxcGDDg fKR7kavdFRpyTGTkUeV7uwmkATsyEANrJHS3TYsg b612VXG9DYdjVnqoCLcsNYNkqdRkdoGzpPseYCCj ADOcIEocCDEwEXrvIPAtHXWaDjAquRzjqMpguB2e LoQtQnRwGQxmIE9cBMFgY6ehhBFlVXJbPEWjT4ch YdUneJ1ybFrrNKzpisFtHAUqvoIigm2cGNymOBB3 [facility] [id number] 17:48:00Surgical Pathology Report Case: [id number] Authorizing Provider: William Sierra, Collected: 02/24/2019 0824 OrderingLocation: [facility] Received: 02/24/2019 1015 PERIOPERATIVE SERVICES Pathologist: Abimael Perez MD Specimen: Carotid, Right, RIGHT CAROTID ARTERY PLAQUE ARTERY, RIGHT CAROTID, ENDARTERECTOMY:CALCIFIC ATHEROSCLEROTIC PLAQUE Signing Pathologist Direct Phone Line: [phone] signed by Abimael Perez MD on 03/03/2019 at 5:48 BY00137; [id number] artery plaque, right, description, right carotid artery plaqueThe specimen is received in one part labeled with the patient's name and MRN number corresponding to requisition slip with the same information. Received in formalin labeled "carotid right" is one piece of blood vessel with a pinpoint lumen measuring 2.7 x 0.8 x 0.5 cm. The lumen is smooth except for proximal dark red irregular surface. Representa tive sections are submitted in cassette A1. MA/plPerformedBasic Metabolic Panel 2019-02-24 10:16:00 Test Item Value Reference Range Interpretation Comments Sodium (test code = 136 meq/L 612-885 4476-2) Potassium (test code = 4.1 meq/L 3.5-5.1 2823-3) Chloride (test code = 107 meq/L 98-107 5-0) CO2 (test code = 22 meq/L 22-29 2027-9) BUN (test code = 18 mg/dL 7- 3094-0) Creatinine (test code = 1.00 mg/dL 0.57-1.25 2160-0) Glucose (test code = 131 mg/dL 70-105 H 2345-7) Calcium (test code = 8.3 mg/dL 8.4-10.2 L 32287-9) EGFR (test code = 73 mL/min/1.73 [place] [address]-3) NOT ACCURATE CREATININE CLEARANCE IN PREDICTING GLOMERULAR FILTRATION RATE . ESTIMATED GFR I S NOT APPLICABLE FOR DIALYSIS PATIEN TS. Lab Interpretation Abnormal (test code = 04423-8) [facility] [id number] 10:16:00 Test Item Value Reference Range Interpretation Comments Protein, Total (test code = 2885-2) 7.0 6.0- 8.3 gm/dL Albumin (test code = 75222-8) 3.7 g/dL 3.5-5 Total Bilirubin (test code = 1.0 mg/dL 0.2-1.2 1974-2) Bilirubin, Direct (test code = 0.4 mg/dL 0.1-0.5 1967-7) Alkaline Phosphatase (test code = 64 U/L 40-150 6768-6) AST (test code = 1920-8) 22 U/L 5-34 ALT (test code = 1742-6) 16 U/L 6-55 Lab Interpretation (test code = Normal 74209-4) [facility] 10:16:00 Test Item Value Reference Range Interpretation Comments Magnesium (test code = 98025-2) 1.9 mg/dL 1.6-2.6 Lab Interpretation (test code = Normal 15109-1) [facility] 10:16:00 Test Item Value Reference Range Interpretation Comments Phosphorus (test code = 2777-1) 2.9 mg/dL 2.3-4.7 Lab Interpretation (test code = Normal 76103-8) [facility]US2019-08-21 10:16:00 Test Item Value Reference Range Interpretation Comments PHOSPHORUS (BEAKER) (test code = 2.9 mg/dL 2.3-4.7 604) [id number] 10:16:00 Test Item Value Reference Range Interpretation Comments MAGNESIUM (BEAKER) (test code = 1.9 mg/dL 1.6-2.6 627) BASIC METABOLIC [id number] 10:16:00 Test Item Value Reference Range Interpretation Comments SODIUM (BEAKER) 136 meq/L 136-145 (test code = 381) POTASSIUM (BEAKER) 4.1 meq/L 3.5-5.1 (test code = 379) CHLORIDE (BEAKER) 107 meq/L 98-107 (test code = 382) CO2 (BEAKER) (test 22 meq/L 22-29 code = 355) BLOOD UREA NITROGEN 18 mg/dL 7-21 (BEAKER) (test code = 354) CREATININE (BEAKER) 1.00 mg/dL 0.57-1.25 (test code = 358) GLUCOSE RANDOM 131 mg/dL 70-105 H (BEAKER) (test code = 652) CALCIUM (BEAKER) 8.3 mg/dL 8.4-10.2 L (test code = 697) EGFR (BEAKER) (test 73 mL/min/1.73 ESTIMA JORGE LUIS GFR IS code = 1092) sq m NOT ACCURATE CREATININE CLEARANCE IN PREDICTING GLOMERULAR FILTRATION RATE . ESTIMATED GFR I S NOT APPLICABLE FOR DIALYSIS PATIEN TS. HEPATIC FUNCTION [id number] 10:16:00 Test Item Value Reference Range Interpretation Comments TOTAL PROTEIN (BEAKER) (test code = 7.0 gm/dL 6.0-8.3 770) ALBUMIN (BEAKER) (test code = 1145) 3.7 g/dL 3.5-5.0 BILIRUBIN TOTAL (BEAKER) (test code 1.0 mg/dL 0.2-1.2 = 377) BILIRUBIN DIRECT (BEAKER) (test 0.4 mg/dL 0.1-0.5 code = 706) ALKALINE PHOSPHATASE (BEAKER) (test 64 U/L 40-150 code = 346) AST (SGOT) (BEAKER) (test code = 22 U/L 5-34 353) ALT (SGPT) (BEAKER) (test code = 16 U/L 6-55 347) Lactic Acid, [id number] 10:10:00 Test Item Value Reference Range Interpretation Comments Lactate, Art (test code = 2874) 0.8 mmol/L 0.5-2.2 Lab Interpretation (test code = Normal 18962-0) [facility] [id number] 10:10:00 Test Item Value Reference Range Interpretation Comments LACTATE BLOOD ARTERIAL (2) 0.8 mmol/L 0.5-2.2 (BEAKER) (test code = 2874) Prothromin time/[id number] 10:05:00 Test Item Value Reference Range Interpretation Comments Protime (test code = 16.2 11.9- 14.2 H 5902-2) seconds INR (test code = 1.4 <=5.9 6301-6) GIANFRANCO (test code = GIANFRANCO) Effective 12/02/2018: PT Reference Range ChangeNew: 11.9-14.2 Previous: 11.7-14.7 RECOMMENDED COUMADIN/WARFARIN INR THERAPY RANGESSTANDARD DOSE: 2.0-3.0 Includes: PROPHYLAXIS for venous thrombosis, systemic embolization; TREATMENT for venous thrombosis and/or pulmonary embolus.HIGH RISK: Target INR is 2.5-3.5 for patients wiht mechanical heart valves. Lab Interpretation Abnormal (test code = 70772-7) [facility]/[id number] 10:05:00 Test Item Value Reference Range Interpretation Comments PROTIME (BEAKER) (test code = 16.2 seconds 11.9-14.2 H 759) INR (BEAKER) (test code = 370) 1.4 <=5.9 Effective 12/02/2018: PT Reference Range ChangeNew: 11.9-14.2 Previous: 11.7- 14.7RECOMMENDED COUMADIN/WARFARIN INR THERAPY RANGESSTANDARD DOSE: 2.0-3.0 Includes: PROPHYLAXIS for venous thrombosis, systemic embolization; TREATMENT for venous thrombosis and/or pulmonary embolus.HIGH RISK: Target INR is2.5-3.5 for patients wiht mechanical heart valves.CBC (Hemogram only)2019-02-24 09:58:00 Test Item Value Reference Range Interpretation Comments WBC (test code = 6690-2) 11.4 3.5- 10.5 K/L H RBC (test code = 789-8) 4.58 4.63- 6.08 M/L L MCHC (test code = 786-4) 34.1 32.3- 36.5 GM/DL Hematocrit (test code = 4544-3) 42.8 % 40.1-51 MCV (test code = 787-2) 93.4 fL 79-92.2 H MCH (test code = 785-6) 31.9 pg 25.7-32.2 RDW (test code = 788-0) 13.1 % 11.6-14.4 Platelets (test code = 777-3) 245 150- 450 K/CU MM MPV (test code = 59271-7) 10.4 fL 9.4-12.4 nRBC (test code = 413) 0 0- 0 /100 WBC Lab Interpretation (test code = Abnormal 08941-6) [facility]2019-02-24 09:58:00 Test Item Value Reference Range Interpretation Comments WHITE BLOOD CELL COUNT (BEAKER) 11.4 K/ L 3.5-10.5 H (test code = 775) RED BLOOD CELL COUNT (BEAKER) 4.58 M/ L 4.63-6.08 L (test code = 761) HEMOGLOBIN (BEAKER) (test code = 14.6 GM/DL 13.7-17.5 410) HEMATOCRIT (BEAKER) (test code = 42.8 % 40.1-51.0 411) MEAN CORPUSCULAR VOLUME (BEAKER) 93.4 fL 79.0-92.2 H (test code = 753) MEAN CORPUSCULAR HEMOGLOBIN 31.9 pg 25.7-32.2 (BEAKER) (test code = 751) MEAN CORPUSCULAR HEMOGLOBIN CONC 34.1 GM/DL 32.3-36.5 (BEAKER) (test code = 752) RED CELL DISTRIBUTION WIDTH 13.1 % 11.6-14.4 (BEAKER) (test code = 412) PLATELET COUNT (BEAKER) (test 245 K/CU MM 150-450 code = 756) MEAN PLATELET VOLUME (BEAKER) 10.4 fL 9.4-12.4 (test code = 754) NUCLEATED RED BLOOD CELLS 0 /100 WBC 0-0 (BEAKER) (test code = 413) Calcium, [id number] 09:53:00 Test Item Value Reference Range Interpretation Comments Calcium, Ion (test code = 1993-) 1.15 mmol/L 1.12-1.27 pH, Blood (test code = 44844-2) 7.37 [facility]CALCIUM, [id number] 09:53:00 Test Item Value Reference Range Interpretation Comments CALCIUM IONIZED (BEAKER) (test 1.15 mmol/L 1.12-1.27 code = 698) PH, BLOOD (BEAKER) (test code = 7.37 1810) PROTHROMBIN TIME/[id number] 07:32:00 Test Item Value Reference Range Interpretation Comments PROTIME (BEAKER) (test code = 15.0 seconds 11.9-14.2 H 759) INR (BEAKER) (test code = 370) 1.2 <=5.9 Effective 12/02/2018: PT Reference Range ChangeNew: 11.9-14.2 Previous: 11.7- 14.7RECOMMENDED COUMADIN/WARFARIN INR THERAPY RANGESSTANDARD DOSE: 2.0-3.0 Includes: PROPHYLAXIS for venous thrombosis, systemic embolization; TREATMENT for venous thrombosis and/or pulmonary embolus.HIGH RISK: Target INR is2.5-3.5 for patients wiht mechanical heart valves.ABORH, [id number] 07:22:00 Test Item Value Reference Range Interpretation Comments ABO Grouping (test code = 2588) O Rh Factor (test code = 2589) POS [facility]-Glucose [id number] 06:07:00 Test Item Value Reference Range Interpretation Comments POC-Glucose Meter (test 96 mg/dL 70-110 TEST ED AT [facility] code = 1538) [address] [facility] 7703 0 Lab Interpretation (test Normal code = 62353-0) [facility] [id number] 06:07:00 Test Item Value Reference Range Interpretation Comments POC-GLUCOSE METER 96 mg/dL 70-110 TESTED AT [facility] 6720 (BEAKER) (test code = [facility] [address] 1538) BASIC METABOLIC [id number] 13:12:00 Test Item Value Reference Range Interpretation Comments SODIUM (BEAKER) 138 meq/L 136-145 (test code = 381) POTASSIUM (BEAKER) 3.8 meq/L 3.5-5.1 (test code = 379) CHLORIDE (BEAKER) 102 meq/L 98-107 (test code = 382) CO2 (BEAKER) (test 28 meq/L - code = 355) BLOOD UREA NITROGEN 15 mg/dL 7-21 (BEAKER) (test code = 354) CREATININE (BEAKER) 1.05 mg/dL 0.57-1.25 (test code = 358) GLUCOSE RANDOM 94 mg/dL 70-105 (BEAKER) (test code = 652) CALCIUM (BEAKER) 10.0 mg/dL 8.4-10.2 (test code = 697) EGFR (BEAKER) (test 69 mL/min/1.73 ESTIMA JORGE LUIS GFR IS code = 1092) sq m NOT ACCURATE CREATININE CLEARANCE IN PREDICTING GLOMERULAR FILTRATION RATE . ESTIMATED GFR I S NOT APPLICABLE FOR DIALYSIS PATIEN MIRZA. [id number] 13:07:00 Test Item Value Reference Range Interpretation Comments PARTIAL THROMBOPLASTIN TIME 50.3 seconds 22.5-36.0 H (BEAKER) (test code = 760) PROTHROMBIN TIME/[id number] 13:05:00 Test Item Value Reference Range Interpretation Comments PROTIME (BEAKER) (test code = 15.9 seconds 11.9-14.2 H 759) INR (BEAKER) (test code = 370) 1.3 <=5.9 Effective 12/02/2018: PT Reference Range ChangeNew: 11.9-14.2 Previous: 11.7- 14.7RECOMMENDED COUMADIN/WARFARIN INR THERAPY RANGESSTANDARD DOSE: 2.0-3.0 Includes: PROPHYLAXIS for venous thrombosis, systemic embolization; TREATMENT for venous thrombosis and/or pulmonary embolus.HIGH RISK: Target INR is2.5-3.5 for patients wiht mechanical heart valves.CBC W/PLT COUNT & AUTO [id number] 12:52:00 Test Item Value Reference Range Interpretation Comments WHITE BLOOD CELL COUNT (BEAKER) 6.4 K/ L 3.5-10.5 (test code = 775) RED BLOOD CELL COUNT (BEAKER) 5.51 M/ L 4.63-6.08 (test code = 761) HEMOGLOBIN (BEAKER) (test code = 16.9 GM/DL 13.7-17.5 410) HEMATOCRIT (BEAKER) (test code = 51.4 % 40.1-51.0 H 411) MEAN CORPUSCULAR VOLUME (BEAKER) 93.3 fL 79.0-92.2 H (test code = 753) MEAN CORPUSCULAR HEMOGLOBIN 30.7 pg 25.7-32.2 (BEAKER) (test code = 751) MEAN CORPUSCULAR HEMOGLOBIN CONC 32.9 GM/DL 32.3-36.5 (BEAKER) (test code = 752) RED CELL DISTRIBUTION WIDTH 12.7 % 11.6-14.4 (BEAKER) (test code = 412) PLATELET COUNT (BEAKER) (test 238 K/CU MM 150-450 code = 756) MEAN PLATELET VOLUME (BEAKER) 10.4 fL 9.4-12.4 (test code = 754) NUCLEATED RED BLOOD CELLS 0 /100 WBC 0-0 (BEAKER) (test code = 413) NEUTROPHILS RELATIVE PERCENT 66 % (BEAKER) (test code = 429) LYMPHOCYTES RELATIVE PERCENT 22 % (BEAKER) (test code = 430) MONOCYTES RELATIVE PERCENT 8 % (BEAKER) (test code = 431) EOSINOPHILS RELATIVE PERCENT 3 % (BEAKER) (test code = 432) BASOPHILS RELATIVE PERCENT 1 % (BEAKER) (test code = 437) NEUTROPHILS ABSOLUTE COUNT 4.25 K/ L 1.78-5.38 (BEAKER) (test code = 670) LYMPHOCYTES ABSOLUTE COUNT 1.41 K/ L 1.32-3.57 (BEAKER) (test code = 414) MONOCYTES ABSOLUTE COUNT (BEAKER) 0.53 K/ L 0.30-0.82 (test code = 415) EOSINOPHILS ABSOLUTE COUNT 0.21 K/ L 0.04-0.54 (BEAKER) (test code = 416) BASOPHILS ABSOLUTE COUNT (BEAKER) 0.03 K/ L 0.01-0.08 (test code = 417) IMMATURE GRANULOCYTES-RELATIVE 0 % 0-1 PERCENT (BEAKER) (test code = 1334)
[2020-02-24] MEDS ORDERED: HEPA 1000U/500MLS 1,000 UNIT/500 ML BAG IV ONE (06:53)
[2020-02-24] MEDS ORDERED: LIDOCAINE 1% MPF 30 ML VIAL ONE (06:53)
[2020-02-24] MEDS ORDERED: NA CHLORIDE 0.9% 500 ML ONE (06:58)
[2020-02-24] MEDS ORDERED: MIDAZOLAM HCL 2 MG/2 ML INJ ONE ×2 (07:20→07:40)
[2020-02-24] MEDS ORDERED: ATROPINE SULF 1 MG/10 ML SYR IV ONE (07:20)
[2020-02-24] MEDS ORDERED: FENTANYL CITR 100 MCG/2 ML ONE (07:20)
[2020-02-24] MEDS ORDERED: ACETYLCYST 20% 4 ML VIAL IH ONE (07:45)
[2020-02-24 08:11] LABS: Protime INR 1.37
--- NOTE | 2020-02-24 08:45 | EKG ---
Test Date: 2020-02-22 Test Time: 13:58:13 Tire Technician: ARNULFO MEASUREMENT RESULTS: Intervals: Rate: 78 MA: QRSD: 100 QT: 396 QTc: 451 [place]: P: MA: QRS: 83 T: 67 INTERPRETIVE STATEMENTS: Atrial fibrillation Abnormal ECG Compared to ECG 08/20/2010 05:47:50 No significant changes Electronically Signed On 02-24-20 08:38:57 CDT by Robert Ferro
[2020-02-24 08:57] VITALS: TEMP 97.8
[2020-02-24 10:06] VITALS: BP 120/87; O2SAT 97
--- NOTE | 2020-02-24 10:11 | OP ---
Surgeon: Robert Ferro MD Cigar Patcher: Sabine Kraus. The patient admitted as an outpatient on 02/24/2020 to the medical laboratory manager. Procedure: Selective bilateral carotid angiogram. Indication: Cerebrovascular disease, abnormal carotid Doppler. Description Of Procedure: Mr. Garner is a 74-year-old male, has had a history of right CEA before. Has hypertension, dyslipidemia. He basically has had a recent carotid Doppler showing severe steno sis on the left carotid system. In the medical laboratory manager, he was prepped and draped in the routine sterile fa shion. Given Versed for sedation. Using the Seldinger technique, we introduced a right common femor al artery, 6-Romanian sheath. A JR4 catheter was selectively introduced into the right common carotid and the left common carotid, respectively. The angiography revealed a patent right CEA site in the I CA. He had normal bilateral common carotid artery and external carotid artery. On the left side, he had a 90% stenosis of the ostium of the left internal carotid artery. 6-Romanian catheters and sheath were used. No complications. Blood Loss: 5 mL. Postoperative Diagnosis: Cerebrovascular disease, severe. Left internal carotid artery stenosis. Plan: Plan is for a left CEA. The patient was given SCD. I will have a followup with Cardiovascula r Surgery in [place] for endarterectomy in the near future. Anesthesia: Total conscious sedation was 30 minutes. NB/MODL Voice ID: [id number] Report ID: [id number]
== END 2020-02-24 10:05 | disposition home or self-care (01) ==
LOC: CCL 06:38
DX: I65.22 Occlusion and stenosis of left carotid artery (principal); I48.91 Unspecified atrial fibrillation; I10 Essential (primary) hypertension; E78.5 Hyperlipidemia, unspecified; G47.30 Sleep apnea, unspecified; Z79.01 Long term (current) use of anticoagulants; Z88.0 Allergy status to penicillin; Z11.59 Encounter for screening for other viral diseases
CPT/HCPCS: 93005; 85025; 80048; 36415 ×2; 85610 ×2; 85730 ×2; 71046; 36222; U0002; C1893; C1760; J2250; J3010; J7040; J1644

== ENCOUNTER 2023-06-18 23:58 | Emergency (ER) | payer OTHER ==
[2023-06-19] MEDS ORDERED: ASPIRIN 81 MG CHEWABLE TABLET ONE (00:30)
[2023-06-19] MEDS ORDERED: ONDANSETRON 4 MG/2 ML VIAL ONE ×2 (00:51→02:51)
[2023-06-19] MEDS ORDERED: MORPHINE 4 MG/ML SYR ONE (00:51)
[2023-06-19] MEDS ORDERED: FAMOTIDINE 20 MG/2 ML VIAL IV ONE (00:55)
[2023-06-19 01:21] LABS: Absolute Lymphocytes (CBC) 0.8 K/uL (0.7-4.9); Lymphocytes % 8.2 % (15.3-44.8); MCV 95.4 fL (80-100); MPV 9.7 fL (7.6-11.3); Platelets 233 thou/uL (152-406); RBC Red Blood Cell Count 5.03 M/uL (4.33-5.43)
[2023-06-19 01:33] LABS: Albumin 4.1 g/dL (3.4-5.0); Bilirubin Direct 0.2 mg/dL (0-0.2); Bilirubin Indirect, Calculated 0.3 mg/dL (0.2-0.8); Bilirubin Total 0.5 mg/dL (0.2-1.0); Magnesium 2.1 mg/dL (1.6-2.4); Potassium 3.6 mEq/L (3.5-5.1); Protein, Total 8.2 g/dL (6.4-8.2); Troponin High Sensitivity 5.8 pg/mL (<58.9)
[2023-06-19] MEDS ORDERED: HYDROMORPHONE HCL 1 MG/ML INJ ONE (02:51)
--- NOTE | 2023-06-19 05:13 | EDPHYS ---
Physician Documentation [facility] Name: Valdez Garner Age: 77 yrs Sex: Male : 1945 Arrival Date: 06/18/2023 Time: 23:58 Bed 5 Private MD: ED Physician Dylan Pacheco HPI: 06/19 00:15 This 77 yrs old Male presents to ER via Ambulatory with complaints of chest pain. kb 00:15 Patient is a 77-year-old male with a history of hypertension, high cholesterol and kb A-fib who presents for upper abdominal pain that radiates up to left chest that began at 1830. Denies shortness of breath, nausea or vomiting.. Historical: - Allergies: 00:09 No Known Allergies; lg3 - Home Meds: 00:09 valsartan oral [Active]; amlodipine oral [Active]; Xarelto oral [Active]; Praluent Pen lg3 subcutaneous [Active]; - PMHx: 00:09 Hypertensive disorder; high cholesterol; AFIB; lg3 - PSHx: 00:09 bilateral carotid arteries; lg3 - Immunization history:: Adult Immunizations up to date, Client reports receiving the 2nd dose of the Covid vaccine, Flu vaccine is up to date. - Social history:: Smoking status: Patient denies any tobacco usage or history of. Patient/guardian denies using alcohol, street drugs. ROS: 00:13 Constitutional: Negative for fever, chills, and weight loss, kb 00:13 Cardiovascular: Positive for chest pain, 00:13 Abdomen/GI: Positive for abdominal pain, 00:13 All other systems are negative, Exam: 00:13 Constitutional: This is a well developed, well nourished patient who is awake, alert, kb and in no acute distress. Head/Face: Normocephalic, atraumatic. ENT: Moist Mucous membranes Respiratory: Respirations even and unlabored. No increased work of breathing. Talking in full sentences Abdomen/GI: Soft, non-tender. No distention Skin: Warm, dry with normal turgor. Normal color. MS/ Extremity: Pulses equal, no cyanosis. Neurovascular intact. Full, normal range of motion. Neuro: Awake and alert, GCS 15, oriented to person, place, time, and situation. Moves all extremities. Normal gait. 00:13 Cardiovascular: Rate: normal, Rhythm: irregularly irregular, Pulses: no pulse deficits are appreciated, 00:13 ECG was reviewed by the Attending Physician. Vital Signs: 00:07 BP 181 / 104; Pulse 85; Resp 15 S; Pulse Ox 98% on R/A; Weight 93.89 kg (R); Height 5 lg3 ft. 10 in. (R); Pain 10/10; 00:44 BP 146 / 99; Pulse 69; Resp 14; Pulse Ox 98% on 3 lpm NC; lg3 01:25 BP 155 / 76; Pulse 76; Resp 18; Pulse Ox 97% on R/A; rv 02:49 BP 136 / 78; Pulse 83; Resp 17; Pulse Ox 96% on R/A; km8 03:15 BP 154 / 93; Pulse 79; Resp 18; Pulse Ox 94% on R/A; km8 04:15 BP 155 / 90; Pulse 83; Resp 16; Pulse Ox 94% on R/A; km8 05:00 BP 148 / 88; Pulse 83; Resp 16; Pulse Ox 95% on R/A; km8 00:07 Body Mass Index 29.70 (93.89 kg, 177.8 cm) lg3 00:07 Pain Scale: Adult lg3 MDM: 00:06 Patient medically screened. kb 00:15 Differential diagnosis: abnormal EKG, acute myocardial infarction, coronary artery kb disease chest wall pain, gastroesophageal reflux disease (GERD). The patient was given aspirin in the Emergency Department. Data reviewed: vital signs, nurses notes. 01:05 Transition of care: After a detail discussion of the patient's case, care is kb transferred to Dylan Pacheco MD. 02:02 ED course: Chest - COMPARISON: None. FINDINGS: Single portable AP view of the chest. sp4 Cardiomegaly. No pulmonary vascular congestion. Lungs are mildly hypoinflated. No definite airspace consolidation. No pleural effusion or pneumothorax. No acute osseous abnormality. IMPRESSION: Cardiomegaly without acute pulmonary process. . 04:21 Differential Diagnosis altered mental status, sepsis, flu. ED course: CT - COMPARISON: sp4 No relevant prior studies available. FINDINGS: CHEST: Lungs: Mild dependent changes in the lower lobes. No consolidation. No mass. Pleural space: Unremarkable. No significant effusion. No pneumothorax. Heart: Cardiomegaly. No significant pericardial fluid. No significant coronary artery calcifications. ABDOMEN: Liver: Left hepatic cyst, 1.3 cm. No follow-up imaging recommended. Gallbladder and bile ducts: Distended gallbladder with a few calcified stones. No ductal dilation. Pancreas: No findings to suggest acute pancreatitis. No mass visualized. No ductal dilation. Spleen: Unremarkable. No splenomegaly. Adrenals: Unremarkable. No mass. Kidneys and ureters: Unremarkable. No hydronephrosis. No solid mass. Stomach and bowel: Colonic diverticulosis. No bowel dilatation or obstruction. No bowel wall thickening. PELVIS: Appendix: The visualized appendix is normal. No pericecal inflammation to suggest acute appendicitis. Bladder: Unremarkable. No mass. Reproductive: Enlarged prostate gland. CHEST, ABDOMEN and PELVIS: Intraperitoneal space: Unremarkable. No significant fluid collection. No free air. Bones/joints: Multilevel vertebral osteophytes. L4-5 vacuum disc phenomenon. No acute fracture visualized. No dislocation. Soft tissues: Unremarkable. Vasculature: Unremarkable. No aortic aneurysm. Lymph nodes: Unremarkable. No enlarged lymph nodes. IMPRESSION: 1. Distended gallbladder with a few calcified stones. 2. Colonic diverticulosis. 3. Enlarged prostate gland. 4. No acute cardiopulmonary findings. . ED course: US - TECHNIQUE: Real-time and ngo scale sonographic imaging of the gallbladder COMPARISON: None available for comparison FINDINGS: Distended gallbladder with multiple gallstones. No gallbladder wall thickening or pericholecystic fluid. The common bile duct measures approximately 4 mm and is nondilated. IMPRESSION: Cholelithiasis with no ultrasound signs of cholecystitis or biliary ductal dilatation.. 06/19 00:07 Order name: Basic Metabolic Panel; Complete Time: 01:50 kb 06/19 00:07 Order name: CBC with Diff; Complete Time: :50 kb 06/19 00:07 Order name: LFT's; Complete Time: :50 kb 06/19 00:07 Order name: Magnesium; Complete Time: 01:50 kb 06/19 00:07 Order name: NT PRO-BNP; Complete Time: 01:50 kb 06/19 00:07 Order name: Troponin HS; Complete Time: 01:50 kb 06/19 00:07 Order name: Lipase; Complete Time: :50 kb 06/19 04:21 Order name: Troponin High Sensitivity; Complete Time: 05:10 sp4 06/19 00:07 Order name: XRAY Chest (1 view) kb 06/19 02:06 Order name: US Abdomen Limited sp4 06/19 02:16 Order name: Chest Abdomen Pelvis W Cont EDMS 06/19 00:07 Order name: EKG; Complete Time: 00:07 kb 06/19 00:07 Order name: Cardiac monitoring; Complete Time: 00:17 kb 06/19 00:07 Order name: EKG - Nurse/Tech; Complete Time: 00:14 kb 06/19 00:07 Order name: IV Saline Lock; Complete Time: 00:28 kb 06/19 00:07 Order name: Labs collected and sent; Complete Time: 00:28 kb 06/19 00:07 Order name: O2 Per Protocol; Complete Time: 00:17 kb 06/19 00:07 Order name: O2 Sat Monitoring; Complete Time: 00:17 kb EC:13 Rate is 82 beats/min. Rhythm is irregularly irregular. QRS [place] is Normal. QRS interval kb is normal at 104 msec. QT interval is normal at 472 msec. Clinical impression: Atrial Fibrillation. Administered Medications: 00:17 Drug: Aspirin PO Chewable Tablet 324 mg PO once; 81 mg tablets x 4 Route: PO; lg3 00:28 Follow up: Response: No adverse reaction lg3 00:39 Drug: morphine IVP or IV 4 mg IVP once over 4 mins Route: IVP; Infused Over: 4 mins; lg3 Site: right antecubital; 01:20 Follow up: Response: No adverse reaction km8 00:39 Drug: Ondansetron IVP 4 mg IVP once; over 2 minutes Route: IVP; Site: right antecubital;lg3 01:20 Follow up: Response: No adverse reaction km8 00:41 Drug: Famotidine IVP 20 mg IVP once; dilute with 10 mL 0.9% NaCl; give over 2 minutes lg3 Route: IVP; Site: right antecubital; 01:20 Follow up: Response: No adverse reaction km8 02:40 Drug: HYDROmorphone IVP 1 mg IVP once Route: IVP; Site: right antecubital; rv 03:25 Follow up: Response: No adverse reaction; Pain is decreased km8 02:40 Drug: Ondansetron IVP 4 mg IVP once; over 2 minutes Route: IVP; Site: right antecubital;rv 03:25 Follow up: Response: No adverse reaction 05:26 Drug: HYDROcodone-acetaminophen PO 5 mg-325 mg 1 tabs PO once Route: PO; 05:26 Follow up: Response: Medication administered at discharge. 05:26 Drug: MetoCLOPramide PO 10 mg PO once Route: PO; 05:26 Follow up: Response: Medication administered at discharge. Disposition: 01:51 Co-signature as Attending Physician, Dylan Pacheco MD I agree with the assessment sp4 and plan of care. I reviewed the patient's care provided by Advanced Practice Provider \T\ agree w/ the diagnosis \T\ care plan. I personally saw the pt \T\ performed a substantive portion of the visit, incldng all aspects of the (History/Exam/Medical Decision Making). Disposition Summary: 06/19/23 05:12 Discharge Ordered Problem: new sp4 Symptoms: have improved sp4 Condition: Stable sp4 Diagnosis - Other cholelithiasis without obstruction sp4 - Cholelithiasis without cholecystitis, biliary colic sp4 Followup: sp4 - With: Gato Harper MD - When: 2 - 3 days - Reason: Recheck today's complaints Discharge Instructions: - Discharge Summary Sheet sp4 - Cholelithiasis sp4 - [place] Diet sp4 Forms: - Patient Portal Instructions sp4 Prescriptions: - Tramadol 50 mg Oral tablet - take 1 tablet ORAL route every 8 hours as needed; 20 tablet; Refills: 0, sp4 Product Selection Permitted - ondansetron 8 mg Oral Tablet,disintegrating - take 1 tablet ORAL route every 8 hours PRN nausea; 30 tablet; Refills: 0, sp4 Product Selection Permitted Signatures: Dispatcher [employer] EDMS Jenni Dumont, PEDRO-Alex Harrell RN Kristan Colunga RN Dylan Darling MD MD sp4 Lindsey Cheema RN RN km8 Corrections: (The following items were deleted from the chart) 02:16 02:06 Abdomen Pelvis W Con+CT.RAD.BRZ ordered. EDMS EDMS 02:39 02:07 Thorax W/ Con+CT.RAD.BRZ ordered. EDMS EDMS
--- NOTE | 2023-06-19 05:13 | ER ---
Nurse's Notes [facility] Name: Valdez Garner Age: 77 yrs Sex: Male : 1945 Arrival Date: 06/18/2023 Time: 23:58 Bed 5 Private MD: Diagnosis: Other cholelithiasis without obstruction;Cholelithiasis without cholecystitis, biliary colic Presentation: 06/19 00:07 Chief complaint: Patient states: epigastric pain radiating to left chest beginning lg3 1830. took Rolaids RUBBER INSULATOR with no relief. pain 10/. Coronavirus screen: Client denies travel out of the [place] in the last 14 days. At this time, the client does not indicate any symptoms associated with coronavirus-19. Ebola Screen: No symptoms or risks identified at this time. Initial Sepsis Screen: Does the patient meet any 2 criteria? No. Patient's initial sepsis screen is negative. Does the patient have a suspected source of infection? No. Patient's initial sepsis screen is negative. Risk Assessment: Do you want to hurt yourself or someone else? Patient reports no desire to harm self or others. Onset of symptoms was June 18, 2023. 00:07 Method Of Arrival: Ambulatory lg3 00:07 Acuity: JOSE RAMON 3 lg3 Triage Assessment: 00:09 General: Appears in no apparent distress. uncomfortable, Behavior is calm, cooperative. lg3 Pain: Complains of pain in epigastric area Pain radiates to anterior aspect of left upper chest and left breast Pain currently is 10 out of 10 on a pain scale. EENT: No deficits noted. No signs and/or symptoms were reported regarding the EENT system. Neuro: No deficits noted. [place] Agitation-Sedation Scale (RASS): 0 - Alert and Calm Level of Consciousness is awake, alert, obeys commands, Oriented to person, place, time, situation. Cardiovascular: No deficits noted. Reports chest pain, Capillary refill < 3 seconds Clubbing of nail beds is absent JVD is absent Patient's skin is warm and dry. Respiratory: No deficits noted. Airway is patent Respiratory effort is even, unlabored, Respiratory pattern is regular, symmetrical. GI: No deficits noted. Abdomen is round non-distended, obese. : No deficits noted. No signs and/or symptoms were reported regarding the genitourinary system. Derm: No deficits noted. No signs and/or symptoms reported regarding the dermatologic system. Skin is intact, is healthy with good turgor, Skin is dry, Skin is normal, Skin temperature is warm. Musculoskeletal: No deficits noted. No signs and/or symptoms reported regarding the musculoskeletal system. Circulation, motion, and sensation intact. Range of motion: intact in all extremities. Historical: - Allergies: 00:09 No Known Allergies; lg3 - Home Meds: 00:09 valsartan oral [Active]; amlodipine oral [Active]; Xarelto oral [Active]; Praluent Pen lg3 subcutaneous [Active]; - PMHx: 00:09 Hypertensive disorder; high cholesterol; AFIB; lg3 - PSHx: 00:09 bilateral carotid arteries; lg3 - Immunization history:: Adult Immunizations up to date, Client reports receiving the 2nd dose of the Covid vaccine, Flu vaccine is up to date. - Social history:: Smoking status: Patient denies any tobacco usage or history of. Patient/guardian denies using alcohol, street drugs. Screenin:14 [facility] ED Fall Risk Assessment (Adult) History of falling in the last 3 months, lg3 including since admission No falls in past 3 months (0 pts). Abuse screen: Denies threats or abuse. Denies injuries from another. Nutritional screening: No deficits noted. Tuberculosis screening: No symptoms or risk factors identified. Assessment: 00:13 General: see triage assessment. lg3 01:00 Reassessment: Patient appears in no apparent distress at this time. Patient and/or km8 family updated on plan of care and expected duration. Pain level reassessed. Patient is alert, oriented x 3, equal unlabored respirations, skin warm/dry/pink. 02:00 Reassessment: Patient appears in no apparent distress at this time. Patient and/or km8 family updated on plan of care and expected duration. Pain level reassessed. Patient is alert, oriented x 3, equal unlabored respirations, skin warm/dry/pink. 03:00 Reassessment: Patient appears in no apparent distress at this time. Patient and/or km8 family updated on plan of care and expected duration. Pain level reassessed. Patient is alert, oriented x 3, equal unlabored respirations, skin warm/dry/pink. 04:00 Reassessment: Patient appears in no apparent distress at this time. Patient and/or km8 family updated on plan of care and expected duration. Pain level reassessed. Patient is alert, oriented x 3, equal unlabored respirations, skin warm/dry/pink. 05:00 Reassessment: Patient appears in no apparent distress at this time. No changes from km8 previously documented assessment. Patient and/or family updated on plan of care and expected duration. Pain level reassessed. Patient is alert, oriented x 3, equal unlabored respirations, skin warm/dry/pink. Patient states symptoms have improved. Vital Signs: 00:07 BP 181 / 104; Pulse 85; Resp 15 S; Pulse Ox 98% on R/A; Weight 93.89 kg (R); Height 5 lg3 ft. 10 in. (R); Pain 10/10; 00:44 BP 146 / 99; Pulse 69; Resp 14; Pulse Ox 98% on 3 lpm NC; lg3 01:25 BP 155 / 76; Pulse 76; Resp 18; Pulse Ox 97% on R/A; rv 02:49 BP 136 / 78; Pulse 83; Resp 17; Pulse Ox 96% on R/A; km8 03:15 BP 154 / 93; Pulse 79; Resp 18; Pulse Ox 94% on R/A; km8 04:15 BP 155 / 90; Pulse 83; Resp 16; Pulse Ox 94% on R/A; km8 05:00 BP 148 / 88; Pulse 83; Resp 16; Pulse Ox 95% on R/A; km8 00:07 Body Mass Index 29.70 (93.89 kg, 177.8 cm) lg3 00:07 Pain Scale: Adult lg3 ED Course: 00:05 Patient arrived in ED. kb 00:06 Jenni Dumont FNP-C is PHCP. kb 00:06 Dylan Pacheco MD is Attending Physician. kb 00:09 Triage completed. lg3 00:09 Alex Mayen, KATHLEEN is Primary Nurse. rv 00:09 Arm band placed on right wrist. lg3 00:14 Patient has correct armband on for positive identification. Placed in gown. Bed in low lg3 position. Call light in reach. Side rails up X 1. Client placed on continuous cardiac and pulse oximetry monitoring. NIBP monitoring applied. laboratory monitor on. Door closed. Noise minimized. Warm blanket given. Family accompanied patient. 00:14 Patient maintains SpO2 saturation greater than 95% on room air. lg3 00:25 XRAY Chest (1 view) In Process Unspecified. EDMS 00:27 Inserted saline lock: 20 gauge in right antecubital area, using aseptic technique. lg3 Blood collected. 00:28 Lipase Sent. lg3 00:28 Basic Metabolic Panel Sent. lg3 00:28 CBC with Diff Sent. lg3 00:28 LFT's Sent. lg3 00:28 Magnesium Sent. lg3 00:28 NT PRO-BNP Sent. lg3 00:28 Troponin HS Sent. lg3 00:45 Oxygen administration via nasal cannula \T\ 3L/min. lg3 01:26 No provider procedures requiring assistance completed. rv 02:28 US Abdomen Limited In Process Unspecified. EDMS 03:15 Chest Abdomen Pelvis W Cont In Process Unspecified. EDMS 05:11 Gato Harper MD is Referral Physician. sp4 05:28 Provided Education on: d/c teaching. km8 05:28 IV discontinued, intact, bleeding controlled, No redness/swelling at site. Pressure km8 dressing applied. Administered Medications: 00:17 Drug: Aspirin PO Chewable Tablet 324 mg PO once; 81 mg tablets x 4 Route: PO; lg3 00:28 Follow up: Response: No adverse reaction lg3 00:39 Drug: morphine IVP or IV 4 mg IVP once over 4 mins Route: IVP; Infused Over: 4 mins; lg3 Site: right antecubital; 01:20 Follow up: Response: No adverse reaction km8 00:39 Drug: Ondansetron IVP 4 mg IVP once; over 2 minutes Route: IVP; Site: right antecubital;lg3 01:20 Follow up: Response: No adverse reaction km8 00:41 Drug: Famotidine IVP 20 mg IVP once; dilute with 10 mL 0.9% NaCl; give over 2 minutes lg3 Route: IVP; Site: right antecubital; 01:20 Follow up: Response: No adverse reaction km8 02:40 Drug: HYDROmorphone IVP 1 mg IVP once Route: IVP; Site: right antecubital; rv 03:25 Follow up: Response: No adverse reaction; Pain is decreased km8 02:40 Drug: Ondansetron IVP 4 mg IVP once; over 2 minutes Route: IVP; Site: right antecubital;rv 03:25 Follow up: Response: No adverse reaction 8 05:26 Drug: HYDROcodone-acetaminophen PO 5 mg-325 mg 1 tabs PO once Route: PO; km8 05:26 Follow up: Response: Medication administered at discharge. 8 05:26 Drug: MetoCLOPramide PO 10 mg PO once Route: PO; km8 05:26 Follow up: Response: Medication administered at discharge. Medication: 01:25 VIS not applicable for this client. rv Outcome: 05:12 Discharge ordered by . sp4 :28 Discharged to home ambulatory, with significant other, 8 :28 Condition: good 05:28 Discharge instructions given to patient, significant other, Instructed on discharge instructions, follow up and referral plans. medication usage, Demonstrated understanding of instructions, follow-up care, medications, Prescriptions given X 2, 05:28 Patient left the ED. km8 Signatures: Dispatcher [employer] EDMS Jenni Dumont, RADIAL DRILL PRESS OPERATOR FOR PLASTIC-C RADIAL DRILL PRESS OPERATOR FOR PLASTIC-Alex Hernandez, RN RN Kristan Dill RN KATHLEEN lg3 Dylan Pacheco MD MD spLindsey Austin RN RN km8
[2023-06-19] MEDS ORDERED: HYDROCODONE/APAP 5/325 MG TAB ONE (05:32)
[2023-06-19] MEDS ORDERED: METOCLOPRAMIDE 5 MG TAB ONE (05:32)
[2023-06-19 08:51] VITALS: BP 148/88; O2SAT 95
--- NOTE | 2023-06-19 17:15 | RAD REPORT ---
EXAM DESCRIPTION: RAD - Chest Single View - 06/19/2023 12:23 am CLINICAL HISTORY: 77 years Male, CHEST PAIN COMPARISON: None. FINDINGS: Single portable AP view of the chest. Cardiomegaly. No pulmonary vascular congestion. Lung s are mildly hypoinflated. No definite airspace consolidation. No pleural effusion or pneumothorax. N o acute osseous abnormality. IMPRESSION: Cardiomegaly without acute pulmonary process. Electronically signed by: Ana Whiting MD 06/19/2023 12:31 AM CARPENTER ASSEMBLER Due to temporary technical issues with the PACS/Fluency reporting system, reports are being signed by the in house radiologists without review as a courtesy to insure prompt reporting. The interpreting radiologist is fully responsible for the content of the report.
--- NOTE | 2023-06-19 19:42 | RAD REPORT ---
EXAM DESCRIPTION: CT - Chest Abdomen Pelvis W Cont - 06/19/2023 5:53 am CLINICAL HISTORY: The patient is 77 years old and is Male; ABD PAIN TECHNIQUE: Axial computed tomography images of the chest, abdomen and pelvis with intravenous contra st. Sagittal and coronal reformatted images were created and reviewed. This CT exam was performed using one or more of the following dose reduction techniques: automated exposure control, adjustme nt of the mA and/or kV according to patient size, and/or use of iterative reconstruction technique. COMPARISON: No relevant prior studies available. FINDINGS: CHEST: Lungs: Mild dependent changes in the lower lobes. No consolidation. No mass. Pleural space: Unremarkable. No significant effusion. No pneumothorax. Heart: Cardiomegaly. No significant pericardial fluid. No significant coronary artery calcifications. ABDOMEN: Liver: Left hepatic cyst, 1.3 cm. No follow-up imaging recommended. Gallbladder and bile ducts: Distended gallbladder with a few calcified stones. No ductal dilation. Pancreas: No findings to suggest acute pancreatitis. No mass visualized. No ductal dilation. Spleen: Unremarkable. No splenomegaly. Adrenals: Unremarkable. No mass. Kidneys and ureters: Unremarkable. No hydronephrosis. No solid mass. Stomach and bowel: Colonic diverticulosis. No bowel dilatation or obstruction. No bowel wall thickening. PELVIS: Appendix: The visualized appendix is normal. No pericecal inflammation to suggest acute appendici tis. Bladder: Unremarkable. No mass. Reproductive: Enlarged prostate gland. CHEST, ABDOMEN and PELVIS: Intraperitoneal space: Unremarkable. No significant fluid collection. No free air. Bones/joints: Multilevel vertebral osteophytes. L4-5 vacuum disc phenomenon. No acute fracture visualized. No dislocation. Soft tissues: Unremarkable. Vasculature: Unremarkable. No aortic aneurysm. Lymph nodes: Unremarkable. No enlarged lymph nodes. IMPRESSION: 1. Distended gallbladder with a few calcified stones. 2. Colonic diverticulosis. 3. Enlarged prostate gland. 4. No acute cardiopulmonary findings. Electronically signed by: Dora Case MD 06/19/2023 04:11 AM RUFFLER Due to temporary technical issues with the PACS/Fluency reporting system, reports are being signed by the in house radiologists without review as a courtesy to insure prompt reporting. The interpreting radiologist is fully responsible for the content of the report.
--- NOTE | 2023-06-19 19:43 | RAD REPORT ---
EXAM DESCRIPTION: US - Abdomen Exam Limited - 06/19/2023 2:27 am CLINICAL HISTORY: ABD PAIN TECHNIQUE: Real-time and ngo scale sonographic imaging of the gallbladder COMPARISON: None available for comparison FINDINGS: Distended gallbladder with multiple gallstones. No gallbladder wall thickening or pericholecystic fluid. The common bile duct measures approximately 4 mm and is nondilated. IMPRESSION: Cholelithiasis with no ultrasound signs of cholecystitis or biliary ductal dilatation. Electronically signed by: Garret Kennedy MD 06/19/2023 02:38 AM MANNEQUIN COLORING ARTIST Due to temporary technical issues with the PACS/Fluency reporting system, reports are being signed by the in house radiologists without review as a courtesy to insure prompt reporting. The interpreting radiologist is fully responsible for the content of the report.
== END 2023-06-19 05:28 | disposition home or self-care (01) ==
LOC: ER 23:58
DX: K80.80 Other cholelithiasis without obstruction (principal); K80.50 Calculus of bile duct without cholangitis or cholecystitis without obstruction; E78.00 Pure hypercholesterolemia, unspecified; I10 Essential (primary) hypertension; I48.91 Unspecified atrial fibrillation; Z79.01 Long term (current) use of anticoagulants
CPT/HCPCS: 71045; 71260; 74177; 76705; 93005; Q9967

== ENCOUNTER 2023-07-04 09:35 | Day surgery (SDC) | payer OTHER ==
[2023-07-04] MEDS ORDERED: CEFOXITIN SODIUM 2 GM/VIAL ONE (09:39)
[2023-07-04] MEDS ORDERED: Ringers Lactate 1,000 ML IV ONE (09:39)
[2023-07-04] MEDS ORDERED: ROCURONIUM 50 MG/5 ML VIAL IV ONE (11:34)
[2023-07-04] MEDS ORDERED: NEOSTIGMINE 1 MG/ML -10 ML VIAL ONE (11:34)
[2023-07-04] MEDS ORDERED: ONDANSETRON 4 MG/2 ML VIAL ONE (11:34)
[2023-07-04] MEDS ORDERED: GLYCOPYRROLATE 0.2 MG/ML SYR ONE (11:34)
[2023-07-04] MEDS ORDERED: FENTANYL CITR 100 MCG/2 ML ONE (11:35)
[2023-07-04] MEDS ORDERED: MIDAZOLAM HCL 2 MG/2 ML INJ ONE (11:35)
[2023-07-04] MEDS ORDERED: LIDOCAINE 2% MPF 5 ML VIAL ONE (11:35)
[2023-07-04] MEDS ORDERED: propofoL 200 MG/20 ML VIAL IV ONE (11:35)
[2023-07-04] MEDS ORDERED: BUPIVACAINE 0.25% PF 10 ML VIAL ONE (11:57)
[2023-07-04] MEDS ORDERED: LABETALOL 20 MG/4ML SYRINGE IV ONE (12:37)
[2023-07-04] MEDS ORDERED: Phenylephrine HCl 10 MG/ML 1 ML VIAL ONE (12:41)
--- NOTE | 2023-07-04 13:14 | P.OP ---
Preoperative diagnosis: Chronic Cholecystitis / Cholelithiasis Postoperative diagnosis: Chronic Cholecystitis / Cholelithiasis Primary procedure: Laparoscopic Cholecystectomy with ICG Cholangiography Anesthesia: GETA + Local Estimated blood loss: <5cc Specimen: Gallbladder Findings: Omental encasement Complications: None Transferred to: Recovery Room Condition: Good
[2023-07-04] MEDS: MEPERIDINE HCL 25 MG/ML SYR ONE ×2 (13:28→13:53)
[2023-07-04 14:02] VITALS: O2SAT 97
--- NOTE | 2023-07-04 14:21 | OP ---
Date of Procedure: 07/04/2023 Surgeon: Gato Harper MD, Preoperative Diagnosis: Chronic cholecystitis/cholelithiasis. Postoperative Diagnosis: Chronic cholecystitis/cholelithiasis. Procedure Performed: Laparoscopic cholecystectomy with indocyanine green cholangiography. Anesthesia: General endotracheal plus local with 0.25% Marcaine. Estimated Blood Loss: Less than 5 cc. Specimen: Gallbladder. Findings: Omental encased into the gallbladder. Complications: None. Disposition: Patient was transferred to recovery room in good condition. Procedure In Detail: After informed consent was obtained, patient was brought to the operating room, prepped and draped in the usual sterile fashion after adequate anesthesia was achieved. I anestheti zed an area of the supraumbilical position down to subcutaneous tissues. The patient had an umbilica l hernia previously and was noted and as such, I removed the incision superiorly to avoid this umbili dayron hernia. At this point, I dissected down through subcutaneous tissues and entered the abdomen wit h a 5 mm 0-degree optical trocar without incident or complication. Insufflation was obtained to 15 m mHg at this time. There was no injury to vital structures upon entry into the abdomen. Two addition al trocars were placed, one in the right upper quadrant, one in the epigastrium. Both of these were similarly anesthetized and sharply incised and 5 mm trocar was placed under direct visualization with out incident or complication. At this point, the umbilical trocar was upsized to a 12 mm under direc t visualization without incident or complication. Patient was positioned head up right-side up posit ion. Ratcheted grasper was used to grasp the patient's gallbladder and placed toward the patient's r ight shoulder. Dissection continued down to remove the omental attachments off the anterior surface of the gallbladder, which were thick and fibrous. There were significant adhesions between the oment um encasing the gallbladder. In addition, the gallbladder had significant adipose tissue attached to it in close apposition of the gallbladder wall requiring additional dissection. After this, dissect ion was used with a combination of blunt and sharp dissection as well as electrocautery. I dissected down to 2 structures, entered the gallbladder which were identified as well as the cystic duct and c ystic artery. I encircled and skeletonized both these structures and critical view of safety was obt ained at this point. Indocyanine green cholangiography was performed at this point, confirmed the an atomy and the cystic duct was of adequate length from the common duct junction to allow for placement of clips without any stenosis. At this point, double clips were placed on the proximal side and sin gly on the distal side of both cystic duct and cystic artery. These structures were then ligated bet holly Endo Ghada. Gallbladder was removed from the hepatic fossa without incident or complication us jorge electrocautery, placed in EndoCatch bag, removed through the umbilical trocar site, sent off for pathologic examination. The abdomen was then re-insufflated, at this point. I inspected the area. There were no hemostatic measures required. Clips were found to be in good anatomic position. Indoc yanine green cholangiography confirmed no leakage of bile at the end of the procedure. The area was copiously irrigated multiple times until completely dry. On inspection, it required no additional he mostatic measures. I suctioned out all effluent. Patient positioned back in neutral position. Jeanette ining effluent was suctioned out. At this point, the umbilical trocar site was closed using a Angel -Sunita suture passer with 0 Vicryl in an interrupted fashion with good approximation of tissues. The abdomen was completely desufflated under direct visualization without incident or complication. Remaining trocars were removed. All skin incisions were then copiously irrigated and closed with a 4 -0 Monocryl in a running fashion. Dermabond was placed over top. The patient tolerated the procedur e well without incident or complication, transferred to PACU in good condition. All counts were correct at the end of the case. JASMIN/MODL Voice ID: [id number] Report ID: [id number]
[2023-07-04] MEDS ORDERED: HYDROCODONE/APAP 10/325 TAB ONE (14:25)
[2023-07-04 15:21] VITALS: BP 137/74; TEMP 97.5
== END 2023-07-04 15:10 | disposition home or self-care (01) ==
LOC: OR 09:35
PROVIDERS: ATTEND Surgery
PROC: BF50200 Other Imaging of Bile Ducts using Fluorescing Agent, Indocyanine Green Dye, Intraoperative (ICD-10-PCS; 2023-07-04)
PROC: 0FT44ZZ Resection of Gallbladder, Percutaneous Endoscopic Approach (ICD-10-PCS; principal; 2023-07-04 11:45)
DX: K80.10 Calculus of gallbladder with chronic cholecystitis without obstruction (principal); I10 Essential (primary) hypertension; E78.00 Pure hypercholesterolemia, unspecified; I48.91 Unspecified atrial fibrillation
CPT/HCPCS: 88304; 47563; J2704; J2710; J2001; J2250; J3010; J2175; J0694; J2405; J7120; J2371